=== PATIENT | female | born 1960 | race African-American/Black ===

== ENCOUNTER 2017-01-24 15:42 | Inpatient (IN) | payer SELFPAY ==
[~2017-01-24] VITALS: Ht 162.6 cm; Wt 68.0 kg
[2017-01-24] MEDS ORDERED: SODIUM CHLORIDE 0.9% 1,000 ML IV ONE (16:30)
[2017-01-24] MEDS ORDERED: CYANOCOBALAMIN 1000MCG/ML VIAL IM ONE (16:30)
[2017-01-24] MEDS ORDERED: LORAZEPAM 2MG/ML CPJ IV ONE (16:45)
[2017-01-24 19:46] LABS: BASOPHILS % 1.1 % (0.0-2.0); EOSINOPHILS % 0.9 % (0.0-5.0); HEMATOCRIT. 35.3 % (36.0-48.0); HEMOGLOBIN. 11.8 g/dL (12.0-16.0); LYMPHOCYTES % 28.4 % (20.0-50.0); MEAN CORPUSCULAR VOLUME 98.5 fL (81.0-99.0); MEAN PLATELET VOLUME 6.4 fl (7.4-10.4); MONOCYTES % 10.6 % (2.0-8.0); PLATELET 233 x1000/uL (130-400); RED BLOOD CELL COUNT 3.59 mill/uL (4.2-5.4); RED CELL DISTRIBUTION WIDTH 13.1 % (11.6-14.6)
[2017-01-24 19:49] LABS: CHLORIDE 100 mEq/L (98-107)
[2017-01-24 19:53] LABS: INR 1.1; PROTHROMBIN TIME 11.2 sec (9.4-11.6)
[2017-01-24 19:59] LABS: CARBON DIOXIDE 28 mEq/L (21-32); ETHANOL BLOOD 276 mg/dL; TROPONIN I < 0.02 ng/mL (0.00-0.04)
[2017-01-24 20:18] LABS: HEPATITIS B SURFACE ANTIGEN NEGATIVE
[2017-01-24 20:46] LABS: HEPATITIS B CORE AB IGM NEGATIVE
[2017-01-24 20:47] LABS: HEPATITIS A AB IGM NEGATIVE (NEGATIVE)
[2017-01-25] MEDS ORDERED: IPRATROPIUM/ALBUTEROL 0.5-3(2.5)MG/3ML NEB INH PRN (00:15)
[2017-01-25] MEDS ORDERED: ACETAMINOPHEN 325MG TABLET PO PRN (00:15)
[2017-01-25] MEDS ORDERED: MAGNESIUM/ALUMINUM HYDROXIDE/SIMETHICONE 30ML UDC PO PRN (00:15)
[2017-01-25] MEDS ORDERED: GUAIFENESIN 200MG/10ML SUGAR FREE UDC PO PRN (00:15)
[2017-01-25] MEDS ORDERED: ACETAMINOPHEN 650MG/20.3ML UDC GT PRN (00:15)
[2017-01-25] MEDS ORDERED: NA PHOS,M-B/NA PHOS,DI-BA ENEMA 118ML PR PRN (00:15)
[2017-01-25] MEDS ORDERED: DIPHENHYDRAMINE 50MG/ML VIAL IV PRN (00:15)
[2017-01-25] MEDS ORDERED: HYDROCODONE/ACETAMINOPHEN 10/325MG TABLET PO PRN (00:15)
[2017-01-25] MEDS ORDERED: ACETAMINOPHEN 650MG SUPP PR PRN (00:15)
[2017-01-25] MEDS ORDERED: ONDANSETRON HCL 4MG/2ML VIAL IV PRN (00:15)
[2017-01-25] MEDS ORDERED: CLONIDINE 0.1MG TABLET PO PRN (00:15)
[2017-01-25] MEDS ORDERED: HYDROCODONE/ACETAMINOPHEN 5/325MG TABLET PO PRN (00:15)
[2017-01-25] MEDS ORDERED: DOCUSATE SODIUM 100MG CAPSULE PO PRN (00:15)
[2017-01-25 04:20] VITALS: BP 129/77
[2017-01-25] MEDS ORDERED: SODIUM CHLORIDE 0.9% INJ 3ML FLUSH IVF SCH (06:00)
== END 2017-01-25 04:45 | disposition left against medical advice (07) | DRG 82 ==
LOC: ER 15:50 → 5WST 22:55 → EDBEDREQ 23:01 → CANRESERV 23:08 → ENRESERV 23:08
PROVIDERS: ADMIT Family Medicine; ATTEND Family Medicine
DX: S00.12XA Contusion of left eyelid and periocular area, initial encounter (principal); E44.1 Mild protein-calorie malnutrition; I10 Essential (primary) hypertension; F10.129 Alcohol abuse with intoxication, unspecified; E87.1 Hypo-osmolality and hyponatremia; D64.9 Anemia, unspecified; D72.819 Decreased white blood cell count, unspecified; F17.210 Nicotine dependence, cigarettes, uncomplicated; M19.90 Unspecified osteoarthritis, unspecified site; M40.209 Unspecified kyphosis, site unspecified; W18.30XA Fall on same level, unspecified, initial encounter; Y90.8 Blood alcohol level of 240 mg/100 ml or more; R74.0 Nonspecific elevation of levels of transaminase and lactic acid dehydrogenase [LDH]; Z53.21 Procedure and treatment not carried out due to patient leaving prior to being seen by health care provider; S00.219A Abrasion of unspecified eyelid and periocular area, initial encounter; Z68.25 Body mass index [BMI] 25.0-25.9, adult; Y93.89 Activity, other specified; Y92.89 Other specified places as the place of occurrence of the external cause; Z82.49 Family history of ischemic heart disease and other diseases of the circulatory system; Y99.8 Other external cause status
CPT/HCPCS: 36415; 70450; 70486; 71010; 72040; 72070; 72100; 80053; 83036; 83880; 84484; 85025; 85610; 86705; 86709; 86803; 87340; 93005; G0482; J2060; J3420; J7030

== ENCOUNTER 2017-06-02 03:18 | Emergency (ER) | payer SELFPAY | END 2017-06-02 07:30 | disposition left against medical advice (07) | LOC: ER 03:18 | DX: Z53.21 Procedure and treatment not carried out due to patient leaving prior to being seen by health care provider (principal) ==

== ENCOUNTER 2017-06-02 20:06 | Emergency (ER) | payer SELFPAY ==
[~2017-06-02] VITALS: Ht 167.6 cm; Wt 51.5 kg
[2017-06-02 20:23] VITALS: BP 142/92
[2017-06-02] MEDS ORDERED: IBUPROFEN 400MG TABLET PO ONE (21:00)
[2017-06-02 21:21] LABS: CHLORIDE 98 mEq/L (98-107)
[2017-06-02 21:23] LABS: EOSINOPHILS % 1.2 % (0.0-5.0); HEMATOCRIT. 35.3 % (36.0-48.0); HEMOGLOBIN. 12.1 g/dL (12.0-16.0); LYMPHOCYTES % 44.4 % (20.0-50.0); MEAN CORPUSCULAR HEMOGLOBIN 32.4 pg (28.0-32.0); MEAN CORPUSCULAR VOLUME 94.7 fL (81.0-99.0); MEAN PLATELET VOLUME 6.4 fl (7.4-10.4); MONOCYTES % 9.6 % (2.0-8.0); NEUTROPHILS % 43.8 % (40.0-76.0); PLATELET 289 x1000/uL (130-400); RED BLOOD CELL COUNT 3.72 mill/uL (4.2-5.4); RED CELL DISTRIBUTION WIDTH 13.7 % (11.6-14.6)
== END 2017-06-02 21:55 | disposition left against medical advice (07) ==
LOC: ER 20:53
DX: R25.2 Cramp and spasm (principal); F17.200 Nicotine dependence, unspecified, uncomplicated; Z59.0 Homelessness
CPT/HCPCS: 36415; 80048; 85025; 99284

== ENCOUNTER 2017-06-05 03:34 | Emergency (ER) | payer SELFPAY ==
[~2017-06-05] VITALS: Ht 167.6 cm; Wt 49.6 kg
[2017-06-05 03:44] VITALS: BP 125/67
== END 2017-06-05 10:16 | disposition left against medical advice (07) ==
LOC: ER 03:55
DX: M79.643 Pain in unspecified hand (principal); Z53.21 Procedure and treatment not carried out due to patient leaving prior to being seen by health care provider

== ENCOUNTER 2017-06-05 13:37 | Emergency (ER) | payer SELFPAY ==
[~2017-06-05] VITALS: Ht 165.1 cm; Wt 51.2 kg
[2017-06-05 13:58] VITALS: BP 138/57
== END 2017-06-05 14:20 | disposition home or self-care (01) ==
LOC: ER 14:08
DX: M65.30 Trigger finger, unspecified finger (principal); Z59.0 Homelessness
CPT/HCPCS: 29130; 99282; 99283

== ENCOUNTER 2017-06-05 19:53 | Emergency (ER) | payer SELFPAY ==
[~2017-06-05] VITALS: Ht 167.6 cm; Wt 55.0 kg
[2017-06-05] MEDS ORDERED: IBUPROFEN 600MG TABLET PO ONE (22:45)
[2017-06-06 00:25] VITALS: BP 121/79
== END 2017-06-06 00:33 | disposition home or self-care (01) ==
LOC: ER 22:55
DX: R25.2 Cramp and spasm (principal); F17.200 Nicotine dependence, unspecified, uncomplicated; Z59.0 Homelessness
CPT/HCPCS: 99282

== ENCOUNTER 2017-06-06 21:52 | Emergency (ER) | payer SELFPAY ==
[~2017-06-06] VITALS: Ht 165.1 cm; Wt 48.0 kg
[2017-06-06 22:13] VITALS: BP 120/73
== END 2017-06-07 00:48 | disposition home or self-care (01) ==
LOC: ER 21:52
DX: M65.30 Trigger finger, unspecified finger (principal); F17.200 Nicotine dependence, unspecified, uncomplicated; Z59.0 Homelessness
CPT/HCPCS: 99281

== ENCOUNTER 2017-06-08 19:37 | Emergency (ER) | payer SELFPAY ==
[~2017-06-08] VITALS: Ht 170.2 cm; Wt 51.8 kg
[2017-06-09 00:34] VITALS: BP 105/76
== END 2017-06-09 01:55 | disposition home or self-care (01) ==
LOC: ER 20:27
DX: M65.30 Trigger finger, unspecified finger (principal); M79.641 Pain in right hand; F17.200 Nicotine dependence, unspecified, uncomplicated; Z59.0 Homelessness
CPT/HCPCS: 29130; 99283

== ENCOUNTER 2017-06-09 21:22 | Emergency (ER) | payer SELFPAY ==
[~2017-06-09] VITALS: Ht 167.6 cm; Wt 51.2 kg
[2017-06-10 07:57] LABS: CHLORIDE 108 mEq/L (98-107)
[2017-06-10] MEDS ORDERED: KETOROLAC 30MG/ML VIAL IM ONE (09:15)
[2017-06-10 11:21] VITALS: BP 125/58
== END 2017-06-10 11:43 | disposition home or self-care (01) ==
LOC: ER 21:22
DX: M25.541 Pain in joints of right hand (principal); F17.210 Nicotine dependence, cigarettes, uncomplicated; Z59.0 Homelessness
CPT/HCPCS: 36415; 80048; 83735; 96372; 99284; J1885; Z7610

== ENCOUNTER 2017-06-10 21:08 | Emergency (ER) | payer SELFPAY | END 2017-06-11 01:43 | disposition left against medical advice (07) | LOC: ER 06-11 01:13 | DX: S69.90XA Unspecified injury of unspecified wrist, hand and finger(s), initial encounter (principal); X58.XXXA Exposure to other specified factors, initial encounter; Y93.89 Activity, other specified; Y92.89 Other specified places as the place of occurrence of the external cause; Y99.8 Other external cause status; Z53.21 Procedure and treatment not carried out due to patient leaving prior to being seen by health care provider ==

== ENCOUNTER 2017-06-11 02:37 | Emergency (ER) | payer SELFPAY ==
[~2017-06-11] VITALS: Ht 157.5 cm; Wt 48.0 kg
[2017-06-11 03:05] VITALS: BP 124/72
== END 2017-06-11 08:37 | disposition left against medical advice (07) ==
LOC: ER 02:37
DX: M79.641 Pain in right hand (principal); Z53.21 Procedure and treatment not carried out due to patient leaving prior to being seen by health care provider

== ENCOUNTER 2017-06-11 23:12 | Emergency (ER) | payer SELFPAY ==
[~2017-06-11] VITALS: Ht 167.6 cm; Wt 43.0 kg
[2017-06-12 00:01] VITALS: BP 143/78
== END 2017-06-12 07:12 | disposition left against medical advice (07) ==
LOC: ER 23:12
DX: R25.2 Cramp and spasm (principal); Z53.21 Procedure and treatment not carried out due to patient leaving prior to being seen by health care provider

== ENCOUNTER 2017-06-15 17:46 | Emergency (ER) | payer SELFPAY | END 2017-06-15 18:43 | disposition left against medical advice (07) | LOC: ER 18:28 | DX: Z53.21 Procedure and treatment not carried out due to patient leaving prior to being seen by health care provider (principal) ==

== ENCOUNTER 2017-07-27 10:52 | Emergency (ER) | payer SELFPAY ==
[~2017-07-27] VITALS: Ht 170.2 cm; Wt 50.0 kg
[2017-07-27] MEDS ORDERED: KETOROLAC 30MG/ML VIAL IM ONE (11:45)
[2017-07-27 11:54] VITALS: BP 134/58
== END 2017-07-27 13:23 | disposition home or self-care (01) ==
LOC: ER 11:12
DX: S93.401A Sprain of unspecified ligament of right ankle, initial encounter (principal); L03.115 Cellulitis of right lower limb; M20.11 Hallux valgus (acquired), right foot; X58.XXXA Exposure to other specified factors, initial encounter; Y93.9 Activity, unspecified; Y92.9 Unspecified place or not applicable
CPT/HCPCS: 73630; 96372; 99284; J1885

== ENCOUNTER 2017-07-28 04:00 | Emergency (ER) | payer SELFPAY ==
[~2017-07-28] VITALS: Ht 167.6 cm; Wt 48.2 kg
[2017-07-28] MEDS ORDERED: KETOROLAC 60MG/2ML VIAL IM ONE (06:30)
[2017-07-28 08:15] VITALS: BP 112/58
== END 2017-07-28 08:40 | disposition home or self-care (01) ==
LOC: ER 05:09
DX: M54.5 Low back pain (principal); G89.29 Other chronic pain; M79.642 Pain in left hand; M79.641 Pain in right hand; F17.200 Nicotine dependence, unspecified, uncomplicated; M19.90 Unspecified osteoarthritis, unspecified site
CPT/HCPCS: 73130; 96372; 99284; J1885

== ENCOUNTER 2017-07-30 00:36 | Emergency (ER) | payer SELFPAY ==
[~2017-07-30] VITALS: Ht 167.6 cm; Wt 50.0 kg
[2017-07-30] MEDS ORDERED: KETOROLAC 30MG/ML VIAL IV STA (03:41)
[2017-07-30 04:30] LABS: CHLORIDE 89 mEq/L (98-107)
[2017-07-30 04:32] LABS: BASOPHILS % 0.8 % (0.0-2.0); EOSINOPHILS % 1.1 % (0.0-5.0); HEMATOCRIT. 31.6 % (36.0-48.0); HEMOGLOBIN. 10.8 g/dL (12.0-16.0); LYMPHOCYTES % 17.8 % (20.0-50.0); MEAN CORPUSCULAR HEMOGLOBIN 32.1 pg (28.0-32.0); MEAN CORPUSCULAR VOLUME 93.8 fL (81.0-99.0); MEAN PLATELET VOLUME 6.5 fl (7.4-10.4); MONOCYTES % 10.6 % (2.0-8.0); NEUTROPHILS % 69.7 % (40.0-76.0); PLATELET 189 x1000/uL (130-400); RED BLOOD CELL COUNT 3.37 mill/uL (4.2-5.4); RED CELL DISTRIBUTION WIDTH 13.8 % (11.6-14.6)
[2017-07-30 04:34] LABS: PARTIAL THROMBOPLASTIN TIME 30.2 sec (23.4-31.0); PROTHROMBIN TIME 10.5 sec (9.4-11.6)
[2017-07-30 06:00] VITALS: BP 144/76
== END 2017-07-30 07:30 | disposition home or self-care (01) ==
LOC: ER 00:36 → CANBEDREQ 08:40
DX: M79.89 Other specified soft tissue disorders (principal); E87.1 Hypo-osmolality and hyponatremia; D72.819 Decreased white blood cell count, unspecified
CPT/HCPCS: 36415; 80053; 83880; 84484; 85025; 85610; 85730; 93005; 93970; 96374; 99285; J1885; Z7610

== ENCOUNTER 2017-07-30 18:18 | Emergency (ER) | payer SELFPAY ==
[~2017-07-30] VITALS: Ht 167.6 cm; Wt 57.0 kg
[2017-07-30] MEDS ORDERED: IBUPROFEN 400MG TABLET PO ONE (19:00)
[2017-07-30 19:09] VITALS: BP 124/67
== END 2017-07-30 22:00 | disposition home or self-care (01) ==
LOC: ER 21:56
DX: M65.30 Trigger finger, unspecified finger (principal)
CPT/HCPCS: 29130; 99283

== ENCOUNTER 2017-07-31 21:21 | Emergency (ER) | payer SELFPAY ==
[~2017-07-31] VITALS: Ht 167.6 cm; Wt 53.0 kg
[2017-08-01] MEDS ORDERED: IBUPROFEN 400MG TABLET PO ONE (02:30)
[2017-08-01 03:16] VITALS: BP 119/59
== END 2017-08-01 03:19 | disposition home or self-care (01) ==
LOC: ER 21:52
DX: M79.641 Pain in right hand (principal); F17.200 Nicotine dependence, unspecified, uncomplicated
CPT/HCPCS: 99283; Z7610

== ENCOUNTER 2017-08-03 20:04 | Emergency (ER) | payer SELFPAY ==
[~2017-08-03] VITALS: Ht 170.2 cm; Wt 48.0 kg
[2017-08-04] MEDS ORDERED: IBUPROFEN 600MG TABLET PO ONE (07:15)
[2017-08-04 07:42] VITALS: BP 118/61
== END 2017-08-04 08:25 | disposition home or self-care (01) ==
LOC: ER 21:12
DX: M54.5 Low back pain (principal); G89.29 Other chronic pain; R03.0 Elevated blood-pressure reading, without diagnosis of hypertension; F17.210 Nicotine dependence, cigarettes, uncomplicated
CPT/HCPCS: 99283; Z7610

== ENCOUNTER 2017-10-10 00:21 | Emergency (ER) | payer SELFPAY ==
[~2017-10-10] VITALS: Ht 162.6 cm; Wt 57.0 kg
[2017-10-10 00:39] VITALS: BP_SYST 69
[2017-10-10] MEDS ORDERED: LORAZEPAM 1MG TABLET PO ONE (03:30)
[2017-10-10] MEDS ORDERED: ONDANSETRON 4MG ODT PO ONE (03:30)
[2017-10-10] MEDS ORDERED: METOCLOPRAMIDE HCL 10MG/2ML VIAL IV ONE (03:45)
[2017-10-10] MEDS ORDERED: SODIUM CHLORIDE 0.9% 1,000 ML IV ONE (03:45)
[2017-10-10] MEDS ORDERED: ACETAMINOPHEN 325MG TABLET PO ONE (03:45)
== END 2017-10-10 08:08 | disposition left against medical advice (07) ==
LOC: ER 00:21
DX: R51 Headache (principal); M79.672 Pain in left foot; M79.671 Pain in right foot
CPT/HCPCS: 70450; 96374; 99284; J7030; Z7610

== ENCOUNTER 2017-10-20 22:50 | Emergency (ER) | payer SELFPAY ==
[~2017-10-20] VITALS: Ht 167.6 cm; Wt 61.0 kg
[2017-10-21] MEDS ORDERED: IBUPROFEN 600MG TABLET PO ONE (06:45)
[2017-10-21 08:00] VITALS: BP 122/85
== END 2017-10-21 08:25 | disposition home or self-care (01) ==
LOC: ER 22:50
DX: M79.672 Pain in left foot (principal); M79.671 Pain in right foot; M79.642 Pain in left hand; M79.641 Pain in right hand; R25.2 Cramp and spasm
CPT/HCPCS: 99283

== ENCOUNTER 2017-10-22 19:34 | Emergency (ER) | payer SELFPAY ==
[~2017-10-22] VITALS: Ht 160 cm; Wt 61.0 kg
[2017-10-23] MEDS ORDERED: KETOROLAC 30MG/ML VIAL IM ONE (02:45)
[2017-10-23 03:44] VITALS: BP 152/98
== END 2017-10-23 06:25 | disposition home or self-care (01) ==
LOC: ER 19:34
DX: M79.672 Pain in left foot (principal); M79.671 Pain in right foot; M25.511 Pain in right shoulder; F17.200 Nicotine dependence, unspecified, uncomplicated
CPT/HCPCS: 73030; 96372; 99284; J1885; Z7610

== ENCOUNTER 2017-10-23 20:18 | Emergency (ER) | payer SELFPAY ==
[~2017-10-23] VITALS: Ht 160 cm; Wt 61.3 kg
[2017-10-23] MEDS ORDERED: IBUPROFEN 600MG TABLET PO ONE (21:45)
[2017-10-23 21:51] VITALS: BP 143/87
== END 2017-10-23 21:53 | disposition home or self-care (01) ==
LOC: ER 20:18
DX: M79.672 Pain in left foot (principal); M79.671 Pain in right foot; M79.1 Myalgia; G89.29 Other chronic pain; F17.200 Nicotine dependence, unspecified, uncomplicated
CPT/HCPCS: 99282

== ENCOUNTER 2017-10-25 21:08 | Emergency (ER) | payer SELFPAY ==
[~2017-10-25] VITALS: Ht 170.2 cm; Wt 46.0 kg
[2017-10-25 21:13] VITALS: BP 128/76
== END 2017-10-26 08:59 | disposition left against medical advice (07) ==
LOC: ER 10-26 08:26
DX: Z00.8 Encounter for other general examination (principal); Z53.21 Procedure and treatment not carried out due to patient leaving prior to being seen by health care provider

== ENCOUNTER 2017-10-26 19:31 | Emergency (ER) | payer SELFPAY ==
[~2017-10-26] VITALS: Ht 165.1 cm; Wt 46.0 kg
[2017-10-26 19:52] VITALS: BP 114/82
== END 2017-10-27 00:06 | disposition home or self-care (01) ==
LOC: ER 20:51
DX: M72.0 Palmar fascial fibromatosis [Dupuytren] (principal); R60.0 Localized edema; F17.200 Nicotine dependence, unspecified, uncomplicated
CPT/HCPCS: 99281

== ENCOUNTER 2017-10-31 22:39 | Emergency (ER) | payer SELFPAY ==
[~2017-10-31] VITALS: Ht 165.1 cm; Wt 46.0 kg
[2017-11-01 08:38] VITALS: BP 113/53
== END 2017-11-01 08:40 | disposition home or self-care (01) ==
LOC: ER 22:39
DX: S02.80XA Fracture of other specified skull and facial bones, unspecified side, initial encounter for closed fracture (principal); H10.9 Unspecified conjunctivitis; F17.200 Nicotine dependence, unspecified, uncomplicated; Y08.89XA Assault by other specified means, initial encounter; Y93.9 Activity, unspecified; Y92.9 Unspecified place or not applicable
CPT/HCPCS: 70450; 70486; 99284

== ENCOUNTER 2017-11-02 00:35 | Emergency (ER) | payer SELFPAY ==
[~2017-11-02] VITALS: Ht 170.2 cm; Wt 48.0 kg
[2017-11-02 01:23] VITALS: BP 131/70
== END 2017-11-02 03:15 | disposition left against medical advice (07) ==
LOC: ER 03:15
DX: R10.9 Unspecified abdominal pain (principal); Z53.21 Procedure and treatment not carried out due to patient leaving prior to being seen by health care provider
CPT/HCPCS: Z7610 ×2

== ENCOUNTER 2017-11-04 21:37 | Emergency (ER) | payer SELFPAY | END 2017-11-04 23:26 | disposition left against medical advice (07) | LOC: ER 21:37 | DX: M79.643 Pain in unspecified hand (principal); Z53.21 Procedure and treatment not carried out due to patient leaving prior to being seen by health care provider ==

== ENCOUNTER 2018-01-29 21:54 | Emergency (ER) | payer SELFPAY ==
[~2018-01-29] VITALS: Ht 157.5 cm; Wt 51.1 kg
[2018-01-30 05:49] VITALS: BP 133/67
== END 2018-01-30 07:30 | disposition home or self-care (01) ==
LOC: ER 21:54
DX: M72.0 Palmar fascial fibromatosis [Dupuytren] (principal); F17.200 Nicotine dependence, unspecified, uncomplicated
CPT/HCPCS: 99283

== ENCOUNTER 2018-09-23 00:46 | Emergency (ER) | payer SELFPAY ==
[~2018-09-23] VITALS: Ht 167.6 cm; Wt 59.0 kg
[2018-09-23] MEDS ORDERED: ACETAMINOPHEN 325MG TABLET PO ONE (06:45)
[2018-09-23 08:16] VITALS: BP 133/51
== END 2018-09-23 08:56 | disposition home or self-care (01) ==
LOC: ER 00:46
DX: M79.621 Pain in right upper arm (principal); F17.210 Nicotine dependence, cigarettes, uncomplicated
CPT/HCPCS: 99283